=== PATIENT | male | born 1980 ===

== ENCOUNTER 2017-05-21 14:05 | Emergency (ER) | payer SELFPAY ==
[2017-05-21 14:34] VITALS: RESP 20; O2SAT 98
--- NOTE | 2017-05-21 16:37 | C.PDOC ---
History Of Present Illness Carl Zamora is a 36 y/o male, with no past medical history, who presents to the emergency department complaining of swelling and mild pain in right inguinal region onset for x 4 days. He denies any abdominal pain, fever, urinary symptoms, rash, pain or swelling to testes or scrotum. Patient denies penile discharge. No further medical complaints. PMD: None provided. Time Seen by Provider: 05/21/17 16:00 Chief Complaint (Nursing): Abnormal Skin Integrity History Per: Patient History/Exam Limitations: no limitations Onset/Duration Of Symptoms: Days (x4) Current Symptoms Are (Timing): Still Present Quality Of Symptoms: Painful, Swollen Past Medical History Reviewed: Historical Data, Nursing Documentation, Vital Signs Vital Signs: Last Vital Signs Temp 98 F 05/21/17 16:53 Pulse 78 05/21/17 16:53 Resp 20 05/21/17 16:53 BP 116/78 05/21/17 16:53 Pulse Ox 98 05/23/17 11:09 Surgical History: No Surg Hx Family History: States: Unknown Family Hx - Social History Hx Tobacco Use: Yes (light smoker <10 cigarettes daily) Hx Alcohol Use: Yes (social) Hx Substance Use: No - Immunization History Hx Tetanus Toxoid Vaccination: No Hx Influenza Vaccination: No Hx Pneumococcal Vaccination: No Review Of Systems Constitutional: Negative for: Fever Gastrointestinal: Negative for: Abdominal Pain Genitourinary: Positive for: Other (swelling and pain to right inguinal area). Negative for: Dysuria, Frequency, Scrotal Pain (or swelling), Penile Pain (or swelling) Skin: Negative for: Rash Physical Exam - Physical Exam Appears: Non-toxic, No Acute Distress Skin: Normal Color, Warm, Dry Neck: Normal, Normal ROM, Supple Lymphatic: Inguinal Node Tenderness (multiple nodes enlarged on right, tender, no overlying erythema, warmth, fluctuance or discharge ) Gastrointestinal/Abdominal: Normal Exam, Soft, No Tenderness, No Distention Male Genital: No Testicular Tenderness, No Testicular Swelling, Inguinal Tenderness (mild. No erythema), No Circumcised, No Other (penile discharge. examined with Dr Munoz) Pulses: Right Femoral: Normal Neurological/Psych: Oriented x3, Normal Speech, Normal Cognition ED Course And Treatment O2 Sat by Pulse Oximetry: 98 (RA) Pulse Ox Interpretation: Normal Medical Decision Making Medical Decision Making: Initial Impression: inguinal lymphadenopathy Initial Plan: 16:37 --Upon provider reevaluation patient is feeling better, is medically stable, and requires no further treatment in the ED at this time. Patient will be discharged home with Rx for Motrin. Counseling was provided and all questions were answered regarding diagnosis and need for follow up. There is agreement to discharge plan. Return if symptoms persist or worsen. Disposition Counseled Patient/Family Regarding: Diagnosis, Need For Followup - Disposition Referrals: [facility] [Outside] Disposition: HOME/ ROUTINE Disposition Time: 16:37 Condition: STABLE Additional Instructions: Aplique compresas tibias en la regin inguinal derecha en el sitio de hinchazn varias veces al da. Leshara ibuprofeno para el dolor si es necesario. Seguimiento en la clnica mdica. Llame para programar karyn krystal. Volver a nutrir a ER para los peores sntomas. Apply warm compresses to right inguinal region at site of swelling several times a day. Take Ibuprofen for pain if needed. Follow up in medical clinic.Call for appointment. Return to ER for worse symptoms. Prescriptions: Ibuprofen [Motrin] 600 mg PO TID #30 tab Instructions: Adenitis (ED) Forms: Gen Discharge Inst Portuguese, [employer] (Portuguese) Print Language: FRISIAN - Clinical Impression Clinical Impression: Lymphadenopathy, inguinal - Scribe Statement Marquise Kramer All medical record entries made by the Luciibjacqui were at my direction and personally dictated by me. I have reviewed the chart and agree that the record accurately reflects my personal performance of the history, physical exam, medical decision making, and the department course for this patient. I have also personally directed, reviewed, and agree with the discharge instructions and disposition.
[2017-05-21 16:54] VITALS: BP 116/78; PULSE 78; TEMP 98
== END 2017-05-21 16:53 | disposition home or self-care (01) ==
LOC: C.ER 14:05
DX: R59.1 Generalized enlarged lymph nodes (principal)